=== PATIENT | male | born 1950 | race Caucasian/White ===

== ENCOUNTER 2024-06-16 06:41 | Observation (INO) ==
--- NOTE | 2024-05-07 08:47 | PAT Medication Instructions ---
Medication Instructions Date of Service May 07, 2024 Home Medications Medication Instructions Recorded tadalafil 5 mg tablet 5 mg PO DAILY #100 tabs 08/22/23 loratadine 10 mg tablet 10 mg PO QPM PRN tadalafil 5 mg tablet 5 mg PO DAILY ibuprofen 200 mg tablet 200 mg PO BID PRN aspirin 81 mg tablet 81 mg PO QAM pravastatin 10 mg tablet 10 mg PO QPM ASK your surgeon for instructions ibuprofen 200 mg tablet 200 mg PO BID PRN ASK your prescriber and surgeon aspirin 81 mg tablet 81 mg PO QAM DO NOT take the morning of surgery loratadine 10 mg tablet 10 mg PO QPM PRN tadalafil 5 mg tablet 5 mg PO DAILY Take evening before surgery pravastatin 10 mg tablet 10 mg PO QPM Other Notes NOTHING TO EAT OR DRINK AFTER MIDNIGHT. If you have any questions please call us at [phone] or [phone] or [phone] or [phone]
--- NOTE | 2024-05-14 14:23 | Anesthesiology Consultation ---
Date of Service May 14, 2024 Assessment & Plan (1) Encounter for pre-operative examination: - Dr. Winston requests general anesthesia rather than neuraxial anesthesia as he would like DVT prophylaxis started as soon as possible. Bolus not ordered. - Outpatient joint assessment: Patient is currently scheduled for inpatient pathway. If re-evaluated and patient/surgeon requests outpatient pathway, patient is not ideal candidate for outpatient joint program from anesthesia standpoint. Chart Review Chart Review: Acceptable Risk for Surgery and Patient seen in Pre Admission Testing Teaching & Discussion Pre-Anesthesia Teaching/Discussion Notes: Instructed NPO after midnight before surgery, except medications with 15 cc of water. Medication instructions provided according to the PAT guidelines. History Surgery Operation Date: 06/16/24 10:40 Proposed Procedures p Left Total Knee Arthroplasty - Jorje Felix MD Height/Weight Height: 5 ft 9.5 in Weight: 70.4 kg Allergies Allergy/AdvReac Type Severity Reaction Status Date / Time docusate Allergy Severe Anaphylaxis Verified 05/06/24 15:23 shellfish derived Allergy Unknown Flushing, Verified 05/06/24 15:23 facial Sulfa (Sulfonamide Allergy Unknown Rash Verified 05/06/24 15:23 Antibiotics) rosuvastatin AdvReac Intermediate Muscle Pain Verified 05/06/24 15:23 Medications Home Medications Medication Instructions Recorded Confirmed Last Taken loratadine 10 mg tablet 10 mg PO QPM PRN prn 02/08/23 05/06/24 10/15/23 tadalafil 5 mg tablet 5 mg PO DAILY #100 tabs 08/22/23 05/06/24 10/15/23 ibuprofen 200 mg tablet 200 mg PO BID PRN Pain 10/04/23 05/06/24 10/15/23 aspirin 81 mg tablet 81 mg PO QAM 05/06/24 05/06/24 Unknown pravastatin 10 mg tablet 10 mg PO QPM 05/06/24 05/06/24 Unknown Past Medical History Medical History BPH (benign prostatic hyperplasia) patient states he will be getting a davenport cath placed at urology day prior to surgery BPPV (benign paroxysmal positional vertigo) reports extensive work-up at [facility] years ago-well controlled Carotid artery plaque Degenerative arthritis of knee, bilateral Essential tremor GERD (gastroesophageal reflux disease) controlled, stable per pt Heterozygous factor V Leiden mutation History of Marin's palsy (~1972) History of COVID-19 05/2022- pt hospitalized after for long covid symptoms including depression and anxiety History of DVT of lower extremity (~08/2023) left, no meds Hyperlipidemia Long COVID pt continues to have long covid symptoms of chronic fatigue, intermittent generalized pruritic skin rashes, heart burn, dysphagia PAC (premature atrial contraction) Patient denies h/o stroke, seizures, heart attack, heart failure, DM, HTN, or blood transfusions. Exercise / Class Metabolic Activity II 4-5 Yardwork/Stairs/Walk up hill (denies chest discomfort or shortness of breath with one flight of stairs) Past Family History Family History Sister Breast cancer Stroke Uterine cancer Father Colorectal cancer 75, diagnosed with colon cancer age 70 Brother Myocardial infarction Diabetes Pulmonary embolism Factor V Leiden Cyclic neutropenia Coronary heart disease Mother Diabetes Denies family history of Ovarian cancer Prostate cancer Lung cancer Past Surgical History Surgical History H/O left knee surgery History of esophagogastroduodenoscopy (EGD) Hx of cardiac catheterization >30 yrs ago- no stents Hx of colonoscopy Inguinal hernia, bilateral repair Past Anesthesia History No Hx of Anesthesia Complications and No Family Hx of Anesthesia Complications History of PONV No Hx of PONV and Hx of Motion Sickness Social History Smoking Status: Never smoker Do You Dip or Chew Tobacco: No Hx Alcohol Use: Yes Alcohol type: wine alcohol intake frequency: a few times a month Hx Substance Use: No substance use type: does not use Review of Systems Occasional snoring, denies witnessed apneas. Patient denies chest pain, shortness of breath, dyspnea on exertion, fever, chills, cough, wheezing, or palpitations. Physical Exam Vital Signs Vitals BP 107/64 P 57 TEMP 36.5 C SP02 98% on RA RESP 18 Physical Patient resting comfortably in chair in no acute distress, alert and oriented, responding appropriately throughout visit Full cervical extension range of motion without pain TMD 3.5 finger breadths Mallampati Score 2 Dentition: left implant lower back and veneers upper front, denies chipped or loose teeth, caps/crowns, or bridges Lungs: normal respiratory effort. Good air movement, clear throughout to auscultation, no adventitious breath sounds Cardiac: regular rate and rhythm, no murmurs noted Carotid arteries: negative bruit bilat Lab Results Anesthesia Preop Results Results Anesthesia Widget: WBC 4.04 K/ul (4.8-10.8) L 05/14/24 Hgb 13.3 g/dl (14.0-18.0) L 05/14/24 Hct 38.9 % (42.0-52.0) L 05/14/24 Plt 189 K/uL (130-400) 05/14/24 Na 138 mmol/L (136-145) 05/14/24 K 4.7 mmol/L (3.5-5.1) 05/14/24 Cl 104 mmol/L (98-107) 05/14/24 CO2 32 mmol/L (21-32) 05/14/24 BUN 22 mg/dl (6-23) 05/14/24 Creat 0.74 mg/dl (0.6-1.4) 05/14/24 Glucose Level 92 mg/dl (70-99(Fasting)) 05/14/24 PT 10.9 Seconds (9.0-12.0) 05/14/24 PTT 25 Seconds (21-31) 05/14/24 INR 1.0 (0.9-1.1) 05/14/24 Blood Type A Positive 05/14/24 Antibody Screen NEGATIVE 05/14/24 Testing Electrocardiogram Date: 05/14/24 Sinus bradycardia, rate 53 bpm Chest X-Ray Date: 05/14/24 No acute chest disease. Other Testing Carotid doppler 06/28/21 < 50% stenosis right and left ICA
--- NOTE | 2024-06-13 09:41 | History & Physical Report ---
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 He is failed conservative treatments affecting his quality life. Like to have his knee fixed. He is pretty apprehensive considering his a history of a DVT and this factor V issue. Plan: Orgran taken to the operating do left total knee replacement for the risks Mente this procedure were explained. We may need to remove the staple and will be prepared to do that. Will likely put some antibiotics in the cement. Will begin DVT prophylaxis soon as possible postop. Pretty concerned about this. Will use Eliquis 2.5 mg twice a day for probably the first month. He is lynsey have a Davenport placed by his urologist the day before. Will likely consult urology to all manage this postoperatively. He will be discharged to home with some home health. (2) Left leg DVT: (3) Heterozygous factor V Leiden mutation: (4) GERD (gastroesophageal reflux disease): (5) Hyperlipidemia: History of Present Illness Chief Complaint: Left knee pain discomfort and instability. Primary Care Provider: Jarrell Andrews MD . 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 He has a long history of left knee problems dating back to his 20s. He had a bad injury with extensive surgery including ACL repair of some sort before more current technology. Did not get symptoms extra-articular reconstruction to stabilize his knee as long as with some meniscal work. He is having problems with the knee ever since. Its become more unstable over time. He likes to play pickle ball but unable to do this due to his pain discomfort and instability. He has tried bracing. He would like to have his knee fixed. 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 He was on blood thinner for a while but now off. He never had a PE. He does have a repeat ultrasound which shows the clot cleared. Allergies Allergy/AdvReac Type Severity Reaction Status Date / Time docusate Allergy Severe Anaphylaxis Verified 05/06/24 15:23 shellfish derived Allergy Unknown Flushing, Verified 05/06/24 15:23 facial Sulfa (Sulfonamide Allergy Unknown Rash Verified 05/06/24 15:23 Antibiotics) rosuvastatin AdvReac Intermediate Muscle Pain Verified 05/06/24 15:23 Home Medications Medication Instructions Recorded Confirmed Type loratadine 10 mg tablet 10 mg PO QPM PRN prn 02/08/23 05/06/24 History tadalafil 5 mg tablet 5 mg PO DAILY #100 tabs 08/22/23 05/06/24 Rx ibuprofen 200 mg tablet 200 mg PO BID PRN Pain 10/04/23 05/06/24 History aspirin 81 mg tablet 81 mg PO QAM 05/06/24 05/06/24 History pravastatin 10 mg tablet 10 mg PO QPM 05/06/24 05/06/24 History walker #1 ea 05/21/24 Rx Past Med/Surg History Problem List Degenerative arthritis of knee, bilateral Carotid artery plaque Colon cancer screening GERD (gastroesophageal reflux disease) Encounter for pre-operative examination Hyperlipidemia Synovial cyst of popliteal space [Carter], left knee Left leg DVT Diagnosed 08/22/2023, reason for warfarin Erectile dysfunction Family history of colon cancer BPH (benign prostatic hyperplasia) Essential tremor Left knee DJD Hernia, inguinal, recurrent Medical History PAC (premature atrial contraction) BPPV (benign paroxysmal positional vertigo) reports extensive work-up at [facility] years ago-well controlled Degenerative arthritis of knee, bilateral History of DVT of lower extremity (~08/2023) left, no meds Hyperlipidemia GERD (gastroesophageal reflux disease) controlled, stable per pt Essential tremor Carotid artery plaque BPH (benign prostatic hyperplasia) patient states he will be getting a davenport cath placed at urology day prior to surgery Heterozygous factor V Leiden mutation History of Marin's palsy (~1972) Long COVID pt continues to have long covid symptoms of chronic fatigue, intermittent generalized pruritic skin rashes, heart burn, dysphagia History of COVID-19 05/2022- pt hospitalized after for long covid symptoms including depression and anxiety Surgical History Hx of cardiac catheterization >30 yrs ago- no stents History of esophagogastroduodenoscopy (EGD) Hx of colonoscopy Inguinal hernia, bilateral repair H/O left knee surgery Family History Sister Breast cancer Stroke Uterine cancer Father Colorectal cancer 75, diagnosed with colon cancer age 70 Brother Myocardial infarction Diabetes Pulmonary embolism Factor V Leiden Cyclic neutropenia Coronary heart disease Mother Diabetes Denies family history of Ovarian cancer Prostate cancer Lung cancer Social History Smoking Status: Never smoker Second Hand Exposure: No; Do You Dip or Chew Tobacco: No; Tobacco Cessation Education Requested by Patient: No Hx Alcohol Use: Yes Alcohol type: wine Alcohol Intake Frequency: 2-4 x/Month Hx Substance Use: No Preferred Language: Yemeni Communication Ability: Effective Visual Impairment: Limited Hearing Ability: Normal Fleet Service Clerk Required: No Beliefs That Will Affect Care: None marital status: Current Living Situation: Alone current occupational status: retired current occupation: Retired surgeon Other Information That Helps Us Care for You: No Feels Safe at Home: Yes Safety Concerns: Feels Safe At This Time Childhood Exposure to Second-Hand Smoke: No Diet: regular caffeine: No Dental Care, Regularly: Yes Physical Activity Frequency: Daily Seatbelt Use: always Sunscreen Use: Yes Assistive Devices: Glasses Review of Systems All systems reviewed & are unremarkable except as noted in HPI & below. Physical Exam . Physical examination was a pleasant healthy middle-age male. Examination of the left knee reveal patient ambulates independently. Has a slight bit of a limp. He is got multiple incisions around the left knee and a varus deformity. Got bony hypertrophy medially. His range of motion is about 10 degrees short of full extension to 110 degrees of flexion. He is got quite a bit of laxity to his knee both AP as well as varus valgus. No particular pain with hip motion. Constitutional WD/WN, vitals as above Respiratory normal respiratory effort, lungs clear to auscultation Cardiovascular RRR, no murmur, no edema Gastrointestinal (Abdomen) normal bowel sounds, soft, nontender, no hepatosplenomegaly Results & Data Results & Data Laboratory Results . He does have a history of an ultrasound on August 21 of this year. Shows a DVT. He has a repeat ultrasound was done in February which showed no DVT. Diagnostic Findings . X-rays of the left knee reviewed. Shows advanced left knee DJD. She got tricompartment disease. Is got tibiofemoral subluxation. He is got a staple in the lateral tibial plateau area. PG Care Time/CCT Total # of Minutes Spent Total Time Spent with Patient: Total time spent is greater than 50% in coordination of care (as documented) at patient's floor/unit and/or counseling patient: Coding Level of Care Code None Diagnoses Degenerative arthritis of knee, bilateral M17.0 Acute deep vein thrombosis (DVT) of popliteal vein of left lower extremity I82.432 Affected thrombotic vein of extremity: popliteal Chronicity: acute Heterozygous factor V Leiden mutation D68.51 GERD (gastroesophageal reflux disease) K21.9 Hyperlipidemia E78.5 (2) Left leg DVT Affected thrombotic vein of extremity: popliteal Chronicity: acute Qualified Code(s): I82.432 - Acute embolism and thrombosis of left popliteal vein
[~2024-06-16 06:41] MED LIST: BUPIVACAINE 0.5 % 5 MG/1 ML PF 10ML VIAL ONE; ROPIVACAINE 0.5% 5 MG/ML 30 ML VIAL ONE
[2024-06-16] MEDS ORDERED: MIDAZOLAM HCL 1 MG/ML 2ML VIAL ONE (07:21)
[2024-06-16] MEDS ORDERED: PROPOFOL IV EMULSION 10 MG/ML 20 ML VIAL IV ONE (07:21)
[2024-06-16] MEDS ORDERED: fentaNYL citrate PF 100 MCG/2 ML VIAL ONE ×2 (07:21→09:18)
[2024-06-16] MEDS: ACETAMINOPHEN 500 MG TAB PO SCH ×2 (07:26→14:13)
[2024-06-16] MEDS: CeleBREX 200 MG CAP PO SCH (07:26)
[2024-06-16] MEDS: METOCLOPRAMIDE HCL 10 MG TABLET PO SCH (07:27)
[2024-06-16] MEDS: LR 15ML/HR IV SCH (07:27)
[2024-06-16] MEDS: LR 60ML/HR IV SCH (07:27)
[2024-06-16] MEDS: dexAMETHasone**PF** 10 MG/ML VIAL IV SCH (07:27)
[2024-06-16] MEDS: FAMOTIDINE 20 MG TAB PO SCH (07:27)
[2024-06-16] MEDS ORDERED: ePHEDrine sulfate 50 MG/ML AMP IV PRN (08:04)
[2024-06-16] MEDS ORDERED: ATROPINE SULFATE 0.1 MG/ML 10ML SYR IV PRN (08:04)
[2024-06-16] MEDS ORDERED: ONDANSETRON INJ 2 MG/ML 2 ML VIAL IV PRN ×2 (08:04→11:25)
[2024-06-16] MEDS ORDERED: LIDOCAINE 2% 2 ML VIAL/AMP(20MG/ML) INFIL ONE (08:06)
--- NOTE | 2024-06-16 08:34 | History & Physical Bridge Note ---
Date of Service June 16, 2024 History & Physical Bridge Note I have examined the patient, reviewed the History & Physical and in the interval since the performance of the History & Physical I have noted the following changes of clinical significance: no changes noted
[2024-06-16] MEDS: ceFAZolin 2000MG 2,000 MG/15 ML SYR IV SCH (08:53)
[2024-06-16] MEDS ORDERED: ONDANSETRON INJ 2 MG/ML 2 ML VIAL ONE (09:23)
[2024-06-16] MEDS: TRANEXAMIC ACID 1,000 MG **IV Intra-op IV SCH (09:52)
[2024-06-16] MEDS: ORTHO JOINT ANESTHETIC ONE (09:58)
[2024-06-16] MEDS: ROPIV 0.5% 246mg, Ketorolac 30mg, EPINEPHrine 0.5mg in NSS INFIL SCH (09:58)
[2024-06-16] MEDS ORDERED: ePHEDrine sulfate 50 MG/ML AMP ONE (10:01)
[2024-06-16] MEDS: VANCOMYCIN HCL 1000MG/20ML VIAL ONE (10:02)
[2024-06-16] MEDS ORDERED: KETOROLAC 30 MG/ML VIAL ONE (10:21)
[2024-06-16] MEDS: fentaNYL citrate PF 100 MCG/2 ML VIAL IV PRN (10:57)
--- NOTE | 2024-06-16 10:57 | Operative Report ---
PG Post Operative Report Pre & Post Diagnosis Operation Date: 06/16/24 08:50 Pre-Op Diagnosis: Left knee osteoarthritis. Post-Op Diagnosis: Left knee osteoarthritis. I identified the patient and participated in the time-out.: Yes Procedure Operation Date: 06/16/24 08:50 Actual Procedures p Left Total Knee Arthroplasty, Cemented(Left) - Jorje Felix MD Surgeon Jorje Felix MD Bridge Welder Alexi Guillen PA-C Estimated Blood Loss 50 Findings Consistent with Post-Op Diagnosis Operative findings revealed severe left knee tricompartment DJD. He had extensive grade 4 [id number] disease and eburnation in all 3 compartments. A chronic ACL deficiency. Specimens Left knee sent for pathology. 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 He had some extensive open surgery on his left knee many years ago. Over the years he developed increased pain discomfort and instability in his knee. X-ray showed advanced tricompartment DJD. He elected proceed with surgical treatment. Description of Procedure Operative implants consist of: 1. Biomet Vanguard size 67.5 left posterior stabilized femoral component. 2. Biomet size 75 tibial tray. 3. 12 mm posterior stabilized polyethylene insert. 4. 31 x 8 all poly patella. The patient was taken to the op room, identified, placed on the operating table in the supine position. All contact areas were appropriately padded. IV antibiotics tried by anesthesia team. An adductor canal block had provided in the holding area. A general anesthetic was implemented by the anesthesia team. A left thigh tourniquet was then placed. The left lower extremity was then prepped and draped in usual sterile fashion. The left leg was elevated and exsanguinated with use of an Esmarch and a turn was placed at 300 mmHg. An anterior approach to the left knee was then performed to longitudinal incision centered over the patella. Sharp dissection was got through subcutaneous tissue down the extensor mechanism. A medial parapatellar arthrotomy incision was made. Some subperiosteal dissection was carried out medially. The fat pad was resected from his patella tendon. The lateral patellofemoral ligament was released. Patella subluxated laterally and the knee was flexed. The osteophytes were taken off distal femur. The ACL was absent. The PCL was released from the distal femur and the tibia subluxated anteriorly. The external tibial alignment jig was then placed on the anterior face of the tibia and adjusted 14 mm medially. Proximal tibial cut was made essentially flush with the most efficient aspect medial tibial plateau. Some os teophytes were taken off medially. The tibia sized to a size 75. Attention was then drawn towards the femur. The distal femur stem with a sharp drill. Intramedullary canal was suction. A 6 degree left valgus cutting guide was placed through the distal femoral cutting block was pinned in place. Distal femoral cut was made to take an additional 3 mm of bone off distal femur. The femur was then sized to a size 67.5. The AP cutting block was pinned parallel to the epicondylar axis which was 4 degrees of external rotation. The anterior cut, anterior chamfer, posterior cut, posterior chamfer cuts were made. The box cutting guide was placed and just slight lateral box cut was made. The knee was flexed. The remnants of the medial and lateral menisci were excised. The osteophytes taken off the posterior aspect the femur. Trial femoral component was placed. The tibial tray was pinned Azeb external rotation and the drill and stem punch were used to create defect in proximal tibia for the tibial tray. The knee was then trialed and the 12 mm insert fit most appropriately. Attention drawn the patella. The patella was cleaned of all soft tissues. Patella thickness measured 23 mm in thickness was cut down to 13. Was sized to a size 31 patella. The lug holes were drilled for 31 patella. The lateral osteophytes removed. Patella button was placed. Knee was taken through range of motion patella tracked nicely with no thumbs test. Attention was then drawn toward placing the permanent components. All trial components were removed. A bone plug was placed in the distal femur limit blood loss. A double batch Palacos G cement was mixed. A Biomet Vanguard size 67.5 left posterior stabilized femoral component, a size 75 tibial tray, 12 mm posterior stabilized polyethylene insert, and a 31 x 8 all poly patella then cemented in place. The knee was brought out into full extension till cement hardened. Final cement check was then performed. The pericapsular tissues were injected with a total of 100 cc of Ortho mix. Patient did receive 1 g of tranexamic acid. The tourniquet was then let let down for total tourniquet time 61 minutes. Hemostasis assured use electrocautery. Extensor Metros then closed with combination 1 PDS suture and 1 Vicryl suture in a [id number] fashion. The extensor Metros were checked found to be intact. Subcutaneous tissues then closed with 2 Dexon suture in a buried interrupted fashion and the skin was closed with skin karthikeyan. Leg was then cleaned and dried and a sterile dressing was Xeroform, 4 fours, sterile cast padding, and Hardik bandage were applied. The patient then transferred to the recovery room in stable condition. Patient tolerated the procedure well and there were no complications. Alexi Guillen, my physician administrative assistant, was present for the entire procedure. His assistance was essential and required for appropriate patient positioning, prepping and draping, surgical exposure, performing the technical details of the operation, placement the implants, closure of the wound, and placement of the sterile bandage. I attest to the content of the Intraoperative Record and any orders documented therein. Any exceptions are noted below.
--- NOTE | 2024-06-16 11:14 | Anesthesiology Progress Note ---
Date of Service June 16, 2024 Anesthesia Post Procedure Vital Signs Vital Signs: Temp Pulse Resp BP Pulse Ox O2 Del Method O2 Flow Rate 06/16/24 11:05 77 15 140/54 L 96 Oxymask 5 06/16/24 10:55 77 15 139/56 L 100 Oxymask 5 06/16/24 10:45 36.6 C 63 15 125/42 L 100 Oxymask 5 06/16/24 07:15 37.0 C 63 20 158/70 H 97 Room Air Pain Intensity Left Knee: Pain Intensity: 1 Transfer of Care Handoff Completed per policy Notes Mental Status: alert / awake / arousable Patient Amnestic to Procedure: Yes Nausea / Vomiting: adequately controlled Pain: adequately controlled Airway Patency, RR, SpO2: stable & adequate BP & HR: stable & adequate Hydration State: stable & adequate Anesthetic Complications: no major complications apparent and Pt Satisfied with anesthetic care
--- NOTE | 2024-06-16 11:16 | XRay Report ---
XR knee LT 1 or 2V routine HISTORY: 73 years-old Male Surgical Post Op left knee arthroplasty COMPARISON: None TECHNIQUE: 2 views of the left knee FINDINGS: Total arthroplasty and patellar resurfacing. Anterior midline skin karthikeyan with expected postoperativ e soft tissue swelling and deep tissue air. No acute fracture or unexpected opaque foreign body. IMPRESSION: Total joint arthroplasty with expected postoperative changes. ACT 112: Negative or not required by law. The above report was generated using voice recognition software. It may contain grammatical, syntax o r spelling errors. Electronically signed by: Chaz Lozada M.D. 06/16/2024 11:14 AM
[2024-06-16] MEDS ORDERED: METOCLOPRAMIDE HCL INJ 5 MG/ML 2 ML VIAL IV PRN (11:25)
[2024-06-16] MEDS ORDERED: oxyCODONE HCL IR 5 MG TAB (IMMEDIATE RELEASE) PO PRN (11:25)
[2024-06-16] MEDS ORDERED: bisacodyL 10 MG SUPP PR PRN (11:25)
[2024-06-16] MEDS ORDERED: MAGNESIUM HYDROXIDE SUSP 30 ML UDC PO PRN (11:25)
[2024-06-16] MEDS ORDERED: NALOXONE HCL 0.4 MG/1 ML VIAL/CARP IV PRN (11:25)
[2024-06-16] MEDS ORDERED: LORATADINE 10 MG TAB PO PRN (11:25)
[2024-06-16] MEDS ORDERED: HYDROmorphone INJ 0.5 MG/0.5 ML SYR IV PRN (11:25)
[2024-06-16] MEDS ORDERED: ALUMINUM/MAGNESIUM SUSP 30 ML UDC PO PRN (11:25)
[2024-06-16] MEDS: KETOROLAC TROMETHAMINE 15 MG/ML VIAL IV SCH (12:40)
[2024-06-16] MEDS: TRANEXAMIC ACID / 0.7% NACL 1,000 MG/100 ML BAG IV SCH (17:34)
[2024-06-16] MEDS: ASCORBIC ACID 500 MG TAB PO SCH (17:39)
[2024-06-16] MEDS: ceFAZolin 1000MG 1,000 MG/7.5 ML SYR IV SCH (17:46)
[2024-06-16] MEDS: PRAVASTATIN SOD 10 MG TAB PO SCH (20:22)
[2024-06-16] MEDS: SENNA 8.6 MG TAB PO SCH (20:22)
[2024-06-16] MEDS ORDERED: SENNA 8.6 MG TAB PO SCH (21:00)
[2024-06-16] MEDS ORDERED: DOCUSATE SODIUM 100 MG CAP PO SCH (21:00)
[2024-06-17 03:26] VITALS: O2SAT 97
--- NOTE | 2024-06-17 06:59 | Orthopedic Progress Note ---
Date of Service June 17, 2024 Assessment & Plan (1) Status post total left knee replacement: Pain reasonably controlled. continue current management dvt prophylaxis: teds, scd's, begin eliquis today. Has some thigh discomfort and swelling. He's concerned about dvt and has h/o factor V abnormality/DVT, will order doppler to be done on thigh area for him. PT/OT, wbat d/c planning: home with home health, possibly today after therapy will discuss with Dr Isidro Adams . 73 year old patient POD 1 from left tka. Doing fairly well today. Pain seems controlled. He does get a pain radiating down his lower leg into the foot/2nd toe. Has had a h/o a herniated lumbar disc in the past. Has some thigh discomfort and swelling. Review of Systems All systems reviewed & are unremarkable except as noted in HPI & below. Physical Exam .alert and oriented. NAD. VSS labs pending Left leg: some mild swelling of the thigh. Compartments soft. Dressing clean, dry, intact. Able to do straight leg raise, dorsiflex, plantarflex, move toes appropriately. NVI. No calf tenderness. Results & Data Results & Data Laboratory Results . Diagnostic Findings . PG Care Time/CCT Total # of Minutes Spent Total Time Spent with Patient: Total time spent is greater than 50% in coordination of care (as documented) at patient's floor/unit and/or counseling patient: Coding Level of Care Code 50085 Post Operative Follow-Up Diagnoses Status post total left knee replacement Z96.652
[2024-06-17 07:12] VITALS: BP 147/65; PULSE 67; RESP 18; TEMP 97.7
[2024-06-17 07:27] LABS: Hematocrit (blood only) 32.7 % (42.0-52.0); Mean Corpuscular Hemoglobin 29.8 pg (25.0-34.0); Mean Corpuscular Hgb Conc 33.6 g/dL (32.0-36.0); Mean Corpuscular Volume 88.6 fL (80.0-100.0); Mean Platelet Volume 9.7 fL (9.4-12.4); Platelet Count 126 K/uL (130-400); RDW Coefficient of Variation 12.1 % (11.5-14.5); Red Blood Count 3.69 M/uL (4.70-6.10); White Blood Count 6.87 K/ul (4.8-10.8)
[2024-06-17 07:45] LABS: BUN Creatinine Ratio 23.5 (10-20); Calcium 8.8 mg/dl (8.6-10.3); Creatinine Clr Calc Pharmacy 81.8 ml/min; Potassium 4.1 mmol/L (3.5-5.1)
[2024-06-17] MEDS: dexAMETHasone 10 MG in SYRINGE 0 ML IV SCH (08:21)
[2024-06-17] MEDS: TAMSULOSIN HCL 0.4 MG CAP PO SCH (08:31)
[2024-06-17] MEDS: MULTIVITAMIN TAB PO SCH (08:32)
[2024-06-17] MEDS: ASPIRIN 81 MG ECTAB PO SCH (08:32)
--- NOTE | 2024-06-17 08:36 | Ultrasound Report ---
LEFT LOWER EXTREMITY VENOUS DOPPLER CLINICAL HISTORY: attention to thigh: pain/swelling, h/o dvt COMPARISON STUDY: Left lower extremity venous Doppler ultrasound March 26, 2024. TECHNIQUE: Sonography of the left common femoral and superficial femoral veins was performed. Remaind er of the left was not imaged due to overlying bandages. FINDINGS: The left common femoral and visualized portions of the superficial femoral veins are paten t. The remainder of the veins were not assessed on this exam. IMPRESSION: No deep venous thrombus within the left thigh. ACT 112: Negative or not required by law. Electronically signed by: Toby Reynolds M.D. 06/17/2024 8:35 AM
[2024-06-17] MEDS: APIXABAN 2.5 MG TAB PO SCH (10:01)
--- NOTE | 2024-06-22 06:29 | Discharge Summary ---
Date of Service June 22, 2024 Admission HPI (Per Admitting) . 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 He has a long history of left knee problems dating back to his 20s. He had a bad injury with extensive surgery including ACL repair of some sort before more current technology. Did not get symptoms extra-articular reconstruction to stabilize his knee as long as with some meniscal work. He is having problems with the knee ever since. Its become more unstable over time. He likes to play pickle ball but unable to do this due to his pain discomfort and instability. He has tried bracing. He would like to have his knee fixed. 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 He was on blood thinner for a while but now off. He never had a PE. He does have a repeat ultrasound which shows the clot cleared. Admission Exam (Per Admitting) . Physical examination was a pleasant healthy middle-age male. Examination of the left knee reveal patient ambulates independently. Has a slight bit of a limp. He is got multiple incisions around the left knee and a varus deformity. Got bony hypertrophy medially. His range of motion is about 10 degrees short of full extension to 110 degrees of flexion. He is got quite a bit of laxity to his knee both AP as well as varus valgus. No particular pain with hip motion. Principal Diagnosis Same as "Discharge Diagnosis" noted below under Discharge Instructions. Discharge Exam .alert and oriented. NAD. VSS labs pending Left leg: some mild swelling of the thigh. Compartments soft. Dressing clean, dry, intact. Able to do straight leg raise, dorsiflex, plantarflex, move toes appropriately. NVI. No calf tenderness. Discharge Data Procedures Performed Operation Date: 06/16/24 08:50 Actual Procedures p Left Total Knee Arthroplasty, Cemented(Left) - Jorje Felix MD Ordered Studies 06/16/24 05:00 US - OR guided needle placemen Stat 06/17/24 06:59 US venous doppler LE LT Urgent Hospital Course (1) Status post total left knee replacement: This is a 73 year old patient admitted on 06/16/24 and underwent total knee arthroplasty. He tolerated the procedure well and there were no complications. Transferred to the PACU post op and later to the orthopedic floor for further care. He was given ancef for antibiotic prophylaxis. He was also given AUBREY stockings, SCDs, and eliquis for DVT prophylaxis. He did have some thigh pain POD 1 and ultrasound was ordered, negative for dvt in the thigh. Hemoglobin, hematocrit, and vital signs were monitored during his hospital stay and remained stable. Did not require any blood transfusions. There were no complications during his hospital stay. By post op day #1 the patient was tolerating a regular diet, pain was reasonably controlled with oral pain medicine, and he was participating in physical therapy. On post op day #1 the patient was discharged home and set up with home health care. He was given printed discharge instructions including prescriptions for extra strength tylenol, cefadroxil, eliquis, zofran, oxycodone, senokot, and flomax. Continue physical therapy, weight bearing as tolerated. Continue AUBREY stockings. Follow up approximately 2 weeks post op or sooner if there are probl ems or concerns. Discharge Plan Discharge Items Patient Disposition: Home - Home Health Services Reason For Visit: LEFT KNEE REPLACEMENT Discharge Diagnosis: Left Knee Replacement Activity: Per Instructions section Weightbearing: Full weightbearing Non-emergency contact: Surgeon Call non-emergency contact if: you have any medication questions Follow-up/Referrals: Jarrell Andrews MD [Primary Care Provider] - Diet: Regular Addtl Attending Provider Instructions: ACTIVITY RECOMMENDATIONS: Diet: * You may resume previous diet. Physical Therapy: * You will go to physical therapy three times each week for four to six weeks after your surgery in order to regain your knee range of motion and to retrain your knee to work properly. * It is just as important to make sure you are getting your knee perfectly straight as it is to regain your knee bend. * Taking a pain pill an hour before therapy can help you have a more productive and comfortable therapy session. Home Exercise: * You were shown a series of exercises (heel props, heel slides, etc.) in the hospital. Do these exercises three to four times each day including the exercises you were shown in physical therapy. Walking: * Get up and walk several times each day. For the first four weeks, try not to stand or walk for more than one hour at a time. If you do stand or walk for more than one hour, you will not hurt anything, but your knee and leg will likely swell. * As you feel comfortable, you may change from the walker or crutches to a cane and then to independent walking. MEDICATIONS: New Medicine: * You will likely be taking one or more of these medications: 1. Oxycodone - A quick and shorter-acting pain medication. Take one to two tablets every six hours to lessen your pain. 2. Eliquis - Thins your blood to lessen the chance of forming a blood clot. * The most common side effects of pain medicine and iron are nausea and constipation. If nausea or constipation is too much of a problem or if you have any questions about your new medicines or doses, call [facility] at . We will try to help you manage these issues. "VERY IMPORTANT TO READ AND REVIEW" Pain: * The immediate post-operative period after knee replacement surgery is often quite painful. * You are given a prescription for pain medicine. You should take it, as directed, when you need it, especially before physical therapy and before going to bed. Pain that interferes with sleep is very common and can last several months. * You will likely need pain medicine for the first four to six weeks. It will not stop all of the pain. The pain will lessen and as you feel better, you may change to milder pain medicine such as Tylenol. * The most common side effects of pain medicine are nausea and constipation, so don't take more than you need. SPECIAL CARE INSTRUCTIONS: TEDs/Elastic Stockings: * The white elastic stockings help limit swelling and prevent blood clots from forming in your legs. The more you wear them, the more they work. * Wear them for six weeks after knee replacement surgery and four weeks after partial knee replacement. Incision Site Care: * Remove dressing postoperative day 2 and then shower. Keep direct shower pressure off the incision site. * After showering, cover karthikeyan with dry gauze and change daily or more frequently if the dressing is getting saturated with drainage. * Use the AUBREY stockings to hold dressing in place. DO NOT apply tape on the skin. * May completely stop using bandage if wound is dry and no drainage * Fontana are removed between 2 and 3 weeks post-op. If your follow-up appointment is made before 2 weeks, please have your appointment re- scheduled. It is too early to remove the karthikeyan. Prevention of Infection: * Take antibiotics one hour before any dental cleaning, dental work, urological procedure, gastrointestinal procedure or any invasive surgery in order to prevent your new joint from getting infected. * You may get the antibiotics from the doctor performing the procedure or you may call our office at [phone] before and we will call in a prescription to the pharmacy of your choice. Things to Watch For: * Drainage from the incision site that occurs more than one week after your surgery. * Severely increased knee/leg pain or swelling. * Increased redness at the incision site. * Fever above 102 degrees Fahrenheit. * Unusual chest pain or shortness of breath. * Unusual pain or burning with urination. Call [facility] at [phone] with any of the above problems or if you have any questions about your medicines or recovery. FOLLOW UP VISIT: Make an appointment to see your doctor for approximately two weeks after surgery for a progress check and staple removal by calling the office at [phone]. Pending Studies at Discharge: No Stand-Alone Forms: My [facility], Smoking Cessation Medications and DC Order Prescriptions: Continued tadalafil 5 mg tablet 5 mg PO DAILY Qty: 100 3RF Eliquis 2.5 mg tablet 2.5 mg PO UD 0RF Patient Comments: patient is not taking currently, was given samples for after surgery (DME) walker [facility] [place] See Rx Instructions .MEDSUPPLY Qty: 1 0RF Rx Instructions: As directed oxycodone 5 mg tablet 5 - 10 mg PO Q6 PRN (Reason: pain) Qty: 40 0RF Rx Instructions: Take as needed for pain ondansetron 4 mg tablet,disintegrating 4 mg PO Q8 PRN (Reason: nausea) Qty: 20 1RF Rx Instructions: Take as needed for nausea sennosides [Senokot] 8.6 mg tablet 8.6 mg PO BID 14 Days Qty: 28 0RF Rx Instructions: Take two times a day to prevent/treat constipation acetaminophen [Tylenol Extra Strength] 500 mg tablet 1,000 mg PO TID 30 Days Qty: 180 0RF Rx Instructions: Take 3 times per day to lessen pain. tamsulosin [Flomax] 0.4 mg capsule 0.4 mg PO DAILY Qty: 7 0RF Rx Instructions: Begin night BEFORE surgery to prevent urinary retention cefadroxil 500 mg capsule 500 mg PO BID 7 Days Qty: 14 0RF Rx Instructions: Take 1 cap twice a day to prevent infection loratadine 10 mg tablet 10 mg PO QPM PRN (Reason: prn) pravastatin 10 mg tablet 10 mg PO QPM aspirin 81 mg Tablet 81 mg PO QAM Amino Acid Capsule PO Discontinued ibuprofen 200 mg Tablet 200 mg PO BID PRN (Reason: Pain) Krames/Other Patient Handouts: Knee Replace Home Recovery Admission Data Admit Date/Time: 06/16/24 10:48 Attending Provider: Jorje Felix Admit Provider: Jorje Felix Primary Care Provider: Jarrell Andrews [facility] Other Interventions: Discharge Summary Assessment (RN) Last Done: 06/17/24 10:16
== END 2024-06-17 11:05 | disposition home health service (06) ==
LOC: ASU 06:41 → 3E 06:41